=== PATIENT | male | born 1995 | race Hispanic/Latino ===

== ENCOUNTER 2020-06-08 14:21 | Emergency (ER) | payer SELFPAY ==
--- NOTE | 2020-06-08 14:58 | RAD ---
XR Forearm Rt 2 View STANDARD HISTORY: Injury, right forearm pain FINDINGS: No bony abnormality seen.
== END 2020-06-08 16:28 | disposition home or self-care (01) ==
LOC: ERS 14:21
DX: S63.501A Unspecified sprain of right wrist, initial encounter (principal); S63.601A Unspecified sprain of right thumb, initial encounter; F17.210 Nicotine dependence, cigarettes, uncomplicated; W18.30XA Fall on same level, unspecified, initial encounter